=== PATIENT | female | born 1990 | race Caucasian/White ===

== ENCOUNTER → 2020-03-04 10:52 | Outpatient (BNVA) | payer BC, SELFPAY | PROVIDERS: Family Provider Family Medicine; PCP Family Medicine; Visit Provider Nurse Practitioner Family | DX: S59.909A Unspecified injury of unspecified elbow, initial encounter (principal) | CPT/HCPCS: 73070 ==

== ENCOUNTER → 2020-07-03 13:38 | Outpatient (BNVA) | payer BC, SELFPAY | PROVIDERS: Family Provider Family Medicine; PCP Family Medicine; Visit Provider Obstetrics & Gynecology | DX: Z30.46 Encounter for surveillance of implantable subdermal contraceptive (principal) | CPT/HCPCS: 81025 ==

== ENCOUNTER → 2020-07-07 12:02 | Outpatient (BNVA) | payer BC, SELFPAY | PROVIDERS: Family Provider Family Medicine; PCP Family Medicine; Visit Provider Family Medicine | DX: F32.9 Major depressive disorder, single episode, unspecified (principal); Z01.419 Encounter for gynecological examination (general) (routine) without abnormal findings | CPT/HCPCS: 88175 ==

== ENCOUNTER → 2020-07-09 11:23 | Outpatient (BNVA) | payer BC, SELFPAY | PROVIDERS: Family Provider Family Medicine; PCP Family Medicine; Visit Provider Nurse Practitioner Family | DX: Z20.828 Contact with and (suspected) exposure to other viral communicable diseases (principal); J06.9 Acute upper respiratory infection, unspecified; R50.9 Fever, unspecified | CPT/HCPCS: 87635 ==

== ENCOUNTER → 2020-09-25 13:33 | Outpatient (BNVA) | payer SELFPAY | PROVIDERS: Family Provider Family Medicine; PCP Family Medicine; Visit Provider Family Medicine | DX: J02.0 Streptococcal pharyngitis (principal); F32.9 Major depressive disorder, single episode, unspecified | CPT/HCPCS: 87880 ==

== ENCOUNTER 2021-06-05 20:46 | Emergency (ER) | payer OTHER, SELFPAY ==
[2021-06-05 20:59] VITALS: BP 138/84; PULSE 84; RESP 18; TEMP 37.1; O2SAT 97; BMI 39.8
--- NOTE | 2021-06-05 21:22 | W.ED.GENADLT ---
HPI - General Adult General: Chief complaint: General Medical Stated complaint: SORE THROAT,NAUSEA,COUGH,PRESSURE BEHIND EARS Time Seen by Provider: 06/05/21 21:21 History of Present Illness: HPI narrative: 30-year-old female comes in today with complaints of pressure behind her eyes, sinus drainage, and a sore throat. Patient reports illness for about 2 days now. Patient appears mildly unwell. Patient appears nontoxic. Patient reports no direct exposure to COVID-19. Review of Systems General: Reports: 10 or more systems reviewed and unremarkable except in HPI and below ENMT: Reports: ear or mastoid pain and sinus pain [facility] ED PFSH: Medical History (Updated 06/05/21 @ 22:17 by RADHA Wolff) Anxiety Depression Migraine aura without headache Surgical History No pertinent past surgical history Family History Denies family history of Diabetes Clotting disorder Hyperlipidemia Anesthesia complication Bleeding disorder Hypertension Stroke Social History Smoking and tobacco status: never smoked Alcohol intake: current Alcohol intake frequency: holidays/special occasions only Alcohol type: beer, wine and hard liquor Physical Exam Const: COMMON NORMALS: no acute distress and patient oriented x3 GENERAL APPEARANCE: cooperative HENMT: COMMON NORMALS: normocephalic, EAC's normal and Normal external nose present HEAD & SCALP: normal to inspection and normocephalic NOSE: Normal external nose present and Nasal discharge present EXTERNAL AUDITORY CANAL: EAC's normal TYMPANIC MEMBRANE: TM abnormal TM laterality: bilateral dull, with fluid behind the TM and not mobile MOUTH: Normal oral and palatal mucosa present THROAT: posterior oropharynx abnormal erythema Eye: GENERAL EYE: appearance normal, both eyes and all related structures Neck/C-Spine: COMMON NORMALS: full ROM Lymph: LYMPHATIC: no lymphadenopathy noted Chest: COMMONS NORMALS: normal inspection of the chest Resp: COMMON NORMALS: normal respiratory effort EFFORT & INSPECTION: Yes able to speak in complete sentences Cardio: COMMON NORMALS: regular rate and regular rhythm RATE: regular rate RHYTHM: regular rhythm GI: COMMON NORMALS: non-tender Back/Pelvis: COMMON NORMALS: thoracic and lumbar spine normal to inspection Extremity: COMMON NORMALS: normal to inspection Neuro: COMMON NORMALS: patient oriented x3 and moves all extremities Psych: COMMON NORMALS: mental status grossly normal and cooperative Skin: COMMON NORMALS: no rashes or lesions noted GENERAL SKIN EXAM: no rashes or lesions noted Course Vital Signs: Vital signs: Vital Signs Temperature 98.8 F 06/05/21 20:59 Pulse Rate 84 06/05/21 20:59 Respiratory Rate 18 06/05/21 20:59 Blood Pressure 138/84 06/05/21 20:59 Pulse Oximetry 97 06/05/21 20:59 MDM - General Adult MDM Narrative: Medical decision making narrative: 30-year-old female comes in today with sinus pain and pressure. Patient also has earache and sore throat. On exam patient has tenderness in the sinuses on palpation. Bilateral TMs were dull with fluid behind them. Posterior pharynx slightly erythematous. No cervical lymphadenopathy. Respirations were even lungs were clear to auscultation. Differential diagnosis rhinosinusitis, upper respiratory infection, COVID-19, strep pharyngitis. COVID-19 test and strep test were both negative. Reviewed exam with patient recommended treatment for sinus infection. Patient reported understanding and agreed to plan. Lab Data: Labs: Lab Results 06/05/21 06/05/21 Range/Units 21:33 21:33 SARS-CoV-2 Ag (Rap id) Negative (Negative) Group A Strep Rapi d Negative (Negative) Discharge Plan Discharge Patient Disposition: Home Clinical Impression: Acute rhinosinusitis Condition: Stable Prescriptions: New amoxicillin-pot clavulanate 875-125 mg tablet 1 tab PO BID Qty: 14 RF: 0 Nasal Decongestant (pseudoeph) 30 mg tablet 30 mg PO .q8 PRN (Reason: nasal congestion) Qty: 14 RF: 0 fluticasone propionate 50 mcg/actuation spray,suspension 1 spray intranasal BID Qty: 16 RF: 0 No Action aripiprazole [Abilify] 2 mg tablet 2 mg PO DAILY Qty: 90 RF: 1 sertraline 50 mg tablet 50 mg PO DAILY Qty: 90 RF: 1 cefdinir 300 mg capsule 300 mg PO BID Qty: 20 RF: 0 Nexplanon 68 mg implant SUBDERMAL RF: 0 sertraline 100 mg tablet 100 mg PO DAILY Qty: 90 RF: 1 Discharge Orders: Discharge ED (Routine); Ordered 06/05/21 Ordered By: Rigo Richards Referrals: Joselito Lim NP [Primary Care Provider] - Discharge Diet: Usual diet Discharge Activity: Increase activity as tolerated Patient Instructions: Acute Bacterial Rhinosinusitis (ED), Opioid Safety Activity Restrictions/Additional Instructions: Drink plenty of fluids. Use medication as directed. Use acetaminophen and ibuprofen for further pain. Follow-up with primary care for further instruction. Return to the ER for worsening symptoms or new concerns. Coding Level of Care Code ED Applications Packager for Chg Fwd Exam Comprehensive
[2021-06-05 21:59] LABS: Rapid Strep A Test Negative (Negative)
[2021-06-05 22:12] LABS: SARS Covid-2 Antigen Negative (Negative)
[2021-06-05] MEDS: amoxicillin-clav 875-125 mg Tablet 1 TAB PO (22:36)
[2021-06-05 22:37] VITALS: PULSE 81; RESP 18; O2SAT 98
== END 2021-06-05 22:37 | disposition home or self-care (01) ==
PROVIDERS: Emergency Provider Nurse Practitioner Family; PCP Nurse Practitioner Family
DX: J01.90 Acute sinusitis, unspecified (principal)
CPT/HCPCS: 87081; 87426; 87880; 99283